=== PATIENT | male | born 1940 | race Caucasian/White ===

== ENCOUNTER 2024-08-04 17:24 | Emergency (ER) | payer OTHER, MEDICARE ==
[~2024-08-04] VITALS: Ht 172.7 cm; Wt 94.0 kg
[2024-08-04] MEDS ORDERED: AMOX TR-K CLV1 EAC1 PO (18:25)
[2024-08-04] MEDS ORDERED: DIPHTH,PERTUSS(ACELL),TET VAC 0.5 ML SYRINGE IM ONE (18:30)
[2024-08-04] MEDS ORDERED: VITAMIN D325 MCG (18:36)
[2024-08-04] MEDS ORDERED: COZAAR25 MG PO (18:37)
[2024-08-04 18:41] VITALS: BP 119/57
[2024-08-04] MEDS ORDERED: AMOXICILLIN/CLAVULANATE K 875 MG TAB PO ONE (18:45)
== END 2024-08-04 18:45 | disposition home or self-care (01) ==
LOC: ED 17:24
DX: S91.351A Open bite, right foot, initial encounter (principal); W54.0XXA Bitten by dog, initial encounter
CPT/HCPCS: 12002; 90471; 90715; 99283-25

== ENCOUNTER 2024-08-30 06:32 | Day surgery (SDC) | payer OTHER ==
[~2024-08-30] VITALS: Ht 172.7 cm; Wt 92.7 kg
--- NOTE | ~2024-08-30 | OR ---
[facility] [address] [place], [place] [address] Draft DATE OF OPERATION: 08/30/2024 SURGEON: Laura Pacheco MD PREOPERATIVE DIAGNOSIS: Right carpal tunnel syndrome. POSTOPERATIVE DIAGNOSIS: Right carpal tunnel syndrome. PROCEDURE PERFORMED: Right carpal tunnel release. ELEVATOR OPERATOR FREIGHT: None. ANESTHESIA: Hadley block. TOURNIQUET TIME: 12 minutes. BRIEF HISTORY: Glen is an 84-year-old gentleman with pain and numbness in his hand and wrist. Risks and benefits of operative treatment were discussed with him after nerve conduction studies confirmed severe carpal tunnel. He elected to proceed. DESCRIPTION OF PROCEDURE: Once consent was obtained, he was taken to the operating room. After adequate anesthesia, he was placed in the Day surgery bed with a hand table. The arm was prepped and draped in a standard sterile fashion after the hadley block was established. The carpal tunnel was approached through a 1.5 cm incision in the distal wrist crease. This was carried through skin and subcutaneous tissue. The palmaris longus was identified, retracted and protected. The transverse carpal ligament was identified under loupe magnification and was dissected free of overlying soft tissue proximally and distally. It was then released again under loupe magnification, approximately about a cm and distally to the distal extent. This was palpated using the [place] elevator and found to be completely released. The refill. The wound was copiously irrigated with normal saline, closed with 3-0 nylon and injected with 7 mL 0.25% plain Marcaine. The wound was dressed with bacitracin, Adaptic 4 x 8s, and gauze. He tolerated the PATIENT NAME: GLEN SERNA OPERATIVE REPORT DATE OF : 36 REPORT #: [id number] PHYSICIAN: LAURA PACHECO MD PCP: LASHONDA GOMEZ MD REPORT IS CONFIDENTIAL AND NOT TO BE RELEASED WITHOUT AUTHORIZATION [facility] [address] [facility] [place], [place] [address] Draft procedure well. All sponge, needle, and instrument counts correct. Laura Pacheco MD BA/TRISHA /[id number] Copies: ~ PATIENT NAME: GLEN SERNA OPERATIVE REPORT DATE OF : 36 REPORT #: [id number] PHYSICIAN: LAURA PACHECO MD PCP: LASHONDA GOMEZ MD REPORT IS CONFIDENTIAL AND NOT TO BE RELEASED WITHOUT AUTHORIZATION
[~2024-08-30 06:32] MED LIST: AMOX TR-K CLV1 EAC1 PO; HYZAAR 100-251 EACH PO; LACTATED RINGER'S 1,000 ML IV SCH; NORVASC10 MG PO; VITAMIN D325 MCG; [UNRECOGNIZED DRUG - OTHER]; [UNRECOGNIZED DRUG - OTHER] PO
[2024-08-30 06:57] VITALS: BP 145/93
[2024-08-30] MEDS ORDERED: CEFAZOLIN SODIUM 2 GM/20 ML SYR IV SCH (07:00)
[2024-08-30] MEDS ORDERED: IBLOOD GLUCOSE TEST STRIP 1 EA TEST VI PRN (07:00)
[2024-08-30] MEDS ORDERED: LIDOCAINE HCL 1% 5 ML SDV INJ ONE (07:00)
[2024-08-30] MEDS ORDERED: propofoL 200 MG/20 ML VIAL ONE (07:11)
[2024-08-30] MEDS ORDERED: LIDOCAINE HCL 0.5% 50 ML SDV ONE (07:11)
[2024-08-30] MEDS ORDERED: LIDOCAINE HCL 2% 5 ML SDV ONE (07:11)
--- NOTE | 2024-08-30 07:26 | NUR ---
PT NOT AVAILABLE FOR VISIT. PROVIDED PRAYER.
[2024-08-30] MEDS ORDERED: HYDROCODONE/ACETA 5/325 TAB PO PRN (07:30)
[2024-08-30] MEDS ORDERED: HYDROCODON-ACE1 EA10 PO (08:05)
[2024-08-30 08:40] VITALS: BP 137/69
--- NOTE | 2024-08-30 09:11 | NUR ---
08/30/24 0911 Susy Lomeli 0801 PT ARRIVED IN PACU SLEEPY. R HAND ELEVATED ON PILLOW. 0810 PT AWAKE AND TALKING TO STAFF. NO C/O'S. ICE TO R HAND. 0820 SITTING UP IN BED SIPPING ON JUICE. 0840 DC INSTRUCTIONS GIVEN. ALL QUESTIONS ANSWERED. 0855 LEFT VIA W/C. INSTRUCTIONS GIVEN TO DAUGHTER AT CAR.
== END 2024-08-30 08:55 | disposition home or self-care (01) ==
LOC: DS 06:32
PROVIDERS: ATTEND Specialist
PROC: 01N50ZZ Release Median Nerve, Open Approach (ICD-10-PCS; principal; 2024-08-30 08:00)
DX: G56.01 Carpal tunnel syndrome, right upper limb (principal); I10 Essential (primary) hypertension; R73.03 Prediabetes; Z79.899 Other long term (current) drug therapy
CPT/HCPCS: 01810; J0690; J2003; J2704; J7121